=== PATIENT | female | born 1930 | race Caucasian/White ===

== ENCOUNTER 2017-10-25 10:02 | Emergency (ER) | payer OTHER ==
[2017-10-25 10:11] VITALS: BP 93/58
--- NOTE | 2017-10-25 10:17 | EDPHY ---
H & P Stated Complaint: cough x months Source: Patient, Family (), Old records Exam Limitations: Clinical condition - Medical/Surgical History Hx Asthma: No Hx Chronic Respiratory Disease: No Hx Diabetes: No Hx Cardiac Disease: No Hx Renal Disease: No Hx Cirrhosis: No Hx Alcoholism: No Hx HIV/AIDS: No Hx Splenectomy or Spleen Trauma: No Other PMH: hypo thyroid. 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 reports that she ate breakfast without difficulty this morning. She has had a chronic cough for months. She had a chest x-ray 6 weeks ago that showed chronic changes per . was unable to get in to see primary care today but has appointment tomorrow morning. He is just requesting some type of medication to help thin her secretions in her mouth. She constantly has a tissue and spitting into it but this is not new per . Patient denies any pain, fever, nausea, vomiting. reports that she has lost 8 lb in the last [address] patient to the emergency room today. Modifying Factors: Regular palliative medication Comment: ROS: see HPI Constitutional: No fever, no chills, no weight loss Eyes: No blurred vision Respiratory: No shortness of breath, + cough Cardiovascular: No chest pain, no palpitations, no lower extremity edema Gastrointestinal: No nausea, no vomiting, no diarrhea Genitourinary: No dysuria Extremities: No myalgias Neurologic: No weakness, no numbness Skin: No rashes Hematologic: No bruising, no bleeding MEDICAL/SURGICAL/SOCIAL HISTORY: Medical history: hypo thyroid, squamous cell CA oral Surgical history: Resection of tongue Social history: On palliative care. 65 years. CONSTITUTIONAL: Cachectic elderly, chronically ill-appearing white female, at bedside, awake and alert, no obvious distress HEENT: Atraumatic and normocephalic, PERRL, EOMI. Nares patent; no rhinorrhea; no nasal mucosal edema. Tympanic membranes clear. Tongue abscess; uvula midline; no postpharyngeal edema. Airway patent. No lymphadenopathy. No meningismus. Cardiovascular: Normal S1/S2, regular rate, regular rhythm, without murmur rub or gallop. PULMONARY/CHEST: Symmetrical and nontender. Clear to auscultation bilaterally. Good air movement. No accessory muscle usage. ABDOMEN: Soft, nondistended, nontender, no rebound, no guarding, no peritoneal signs, no masses or organomegaly. No CVAT. EXTREMITIES: 2/2 pulses, strength 5/5, no deformities, no clubbing, no cyanosis or edema. NEUROLOGICAL: no focal neuro deficits. GCS 15. SKIN: Warm and dry, no erythema. no rash. Good capillary refill. (Vickie Dupree) Constitutional: Initial Vital Signs Temperature (C) 36.7 C 10/25/17 10:08 Heart Rate 76 10/25/17 10:08 Respiratory Rate 18 10/25/17 10:08 Blood Pressure 93/58 L 10/25/17 10:08 O2 Sat (%) 96 10/25/17 10:08 O2 Delivery Mode Room Air Allergies/Adverse Reactions: solumedrol Allergy (Severe, Uncoded 09/20/12 15:27) Swelling/neck,face,throat Home Medications: Medication Instructions Recorded Oxycontin 10/25/17 Scopolamine Hydrobromide 1 patch TD Q72H #6 patch 10/25/17 [Scopolamine Patch] Medical Decision Making ED Course/Re-evaluation: Confirmed patient is DNR status on palliative care at [facility]. [place] patient. Offered laboratory studies, chest imaging to patient and who politely decline. reports that that can be done tomorrow at primary care office. No signs of dysphagia/aspiration/sepsis. Blood pressure low normal per . Gave patient scopolamine patch and prescription for same her 's request. Able to swallow secretions, ate breakfast this morning. No signs of respiratory distress/airway compromise. This patient was seen under the supervision of my secondary supervising physician. I evaluated care for this patient independently. Discussed this patient with Dr. Tee who did not see the patient. (Vickie Dupree) The patient was evaluated and managed by the physician print shop assistant. I have reviewed this chart and I agree with the findings and plan of care as documented , as indicated by my signature. I am the secondary supervising physician. ( Janel Tee) Differential Diagnosis: Differential including but not limited to pulmonary infectious process, pulmonary embolus, interstitial lung disease, pleural effusion and congestive heart failure. (Vickie Dupree) - Data Points Medications Given: Discontinued Medications Scopolamine HBr (Scopolamine Patch) 1 patch TD Q72H LANDY Stop: 04/23/18 10:29 Last Admin: 10/25/17 10:59 Dose: 1 patch Departure - Departure Disposition: Home, Routine, Self-Care Clinical Impression: Palliative care patient, Increased oropharyngeal secretions Condition: Good Instructions: Scopolamine (Absorbed through the skin), Palliative Care (ED) Additional Instructions: A scopolamine patch was placed today to decrease oral secretions. This scopolamine patch can remain for 72 hr and then needs to be removed and replaced. Please keep follow-up appointment with primary care provider tomorrow morning. Return at once for any worsening symptoms or concerns. Referrals: PCP Not In,Adiel [Medical Doctor] - 10/26/17 Prescriptions: Scopolamine Hydrobromide [Scopolamine Patch] 1 patch TD Q72H #6 patch
[2017-10-25] MEDS ORDERED: SCOPOLAMINE HYDROBROMIDE 1 MG/3 DAYS PATCH TD SCH (10:30)
== END 2017-10-25 11:00 | disposition home or self-care (01) ==
DX: K11.7 Disturbances of salivary secretion (principal); Z51.5 Encounter for palliative care; Z85.810 Personal history of malignant neoplasm of tongue